=== PATIENT | male | born 1990 | race Caucasian/White ===

== ENCOUNTER 2016-07-01 11:58 | Emergency (ER) | payer OTHER ==
[2016-07-01 13:16] VITALS: BP 113/60
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
== END 2016-07-01 15:07 | disposition home or self-care (01) ==
LOC: UCCORT 11:58
DX: J06.9 Acute upper respiratory infection, unspecified (principal); J98.01 Acute bronchospasm
CPT/HCPCS: 99212; G0463

== ENCOUNTER 2016-08-31 16:55 | Emergency (ER) | payer OTHER ==
[2016-08-31 17:22] VITALS: BP 119/73
[2016-08-31] MEDS ORDERED: BSS OPTH.SOL* BTL ONE (18:09)
[2016-08-31] MEDS ORDERED: Tetracaine 0.5% OPTH.SOL 4 ML* 1 DROP BTL ONE (18:09)
[2016-08-31] MEDS ORDERED: Fluorescein Sodium TOPICAL* 1 MG TEST ONE (18:09)
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
== END 2016-08-31 18:30 | disposition home or self-care (01) ==
LOC: UCCORT 16:55
DX: S05.01XA Injury of conjunctiva and corneal abrasion without foreign body, right eye, initial encounter (principal); X58.XXXA Exposure to other specified factors, initial encounter; Y93.9 Activity, unspecified; Y92.9 Unspecified place or not applicable
CPT/HCPCS: 99212; A9270-GY; G0463

== ENCOUNTER 2016-10-24 18:55 | Emergency (ER) | payer OTHER ==
[2016-10-24 19:22] VITALS: BP 115/76
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
[2016-10-24] MEDS ORDERED: cefTRIAXone VIAL(*) 1,000 MG VIAL IM ONE (19:57)
[2016-10-24] MEDS ORDERED: Lidocaine 1% MPF* 2 ML VIAL INJ ONE (20:00)
== END 2016-10-24 20:38 | disposition home or self-care (01) ==
LOC: UCCORT 18:55
DX: I89.1 Lymphangitis (principal)
CPT/HCPCS: 87070; 87205; 96372; 99212; G0463; J0696

== ENCOUNTER 2016-12-05 19:08 | Emergency (ER) | payer OTHER ==
[2016-12-05 19:33] VITALS: BP 124/82
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
== END 2016-12-05 20:35 | disposition home or self-care (01) ==
LOC: UCCORT 19:08
DX: R05 Cough (principal); R09.89 Other specified symptoms and signs involving the circulatory and respiratory systems
CPT/HCPCS: 99212; G0463

== ENCOUNTER 2017-05-18 17:36 | Emergency (ER) | payer OTHER ==
[2017-05-18 19:40] VITALS: BP 123/82
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
== END 2017-05-18 19:49 | disposition home or self-care (01) ==
LOC: UCCORT 17:36
DX: J32.9 Chronic sinusitis, unspecified (principal)
CPT/HCPCS: 99212; G0463

== ENCOUNTER 2018-02-27 11:03 | Emergency (ER) | payer MEDICAID, OTHER | END 2018-02-27 12:35 | disposition home or self-care (01) | LOC: UCCORT 11:20 | DX: J06.9 Acute upper respiratory infection, unspecified (principal); K52.9 Noninfective gastroenteritis and colitis, unspecified | CPT/HCPCS: 99211; G0463 ==